=== PATIENT | female | born 1990 | race Caucasian/White ===

== ENCOUNTER 2017-03-24 18:43 | Emergency (ER) | payer BC ==
--- NOTE | 2017-03-24 18:57 | UC ---
Dizzy HPI HPI Summary: 26 year old female presents with fatigue, low energy and hypotension. I will send her to the ER for stat blood work. - History Of Current Complaint Chief Complaint: UCGeneralIllness Stated Complaint: DIZZY,LOW BLOOD PRESSURE THIS AM Time Seen by Provider: 03/24/17 18:52 Hx Last Menstrual Period: 09/09/12 - Allergies/Home Medications Allergies/Adverse Reactions: Allergies Allergy/AdvReac Type Severity Reaction Status Date / Time No Known Allergies Allergy Verified 03/24/17 18:51 Home Medications: Home Medications Flurbiprofen 100 mg PO BID 03/24/17 [History Confirmed 03/24/17] Nabumetone TAB* [Relafen TAB*] 500 mg PO BID 03/24/17 [History Confirmed ] PMH/Surg Hx/FS Hx/Imm Hx - Surgical History Surgical History: None - Family History Known Family History: Negative: Cardiac Disease, Hypertension, Diabetes - Social History Alcohol Use: Occasionally Substance Use Type: None Smoking Status (MU): Light Every Day Tobacco Smoker Type: Cigarettes Amount Used/How Often: 1/2 PPD Household Exposure Type: Cigarettes Review of Systems Constitutional: Fatigue Skin: Negative Eyes: Negative ENT: Negative Respiratory: Negative Cardiovascular: Negative Gastrointestinal: Negative Genitourinary: Negative Motor: Negative Neurovascular: Negative Musculoskeletal: Negative Neurological: Weakness Psychological: Negative All Other Systems Reviewed And Are Negative: Yes Physical Exam Triage Information Reviewed: Yes Eye Exam: Normal ENT Exam: Normal Dental Exam: Normal Neck exam: Normal Neck: Positive: 1 Respiratory Exam: Normal Cardiovascular Exam: Normal Abdominal Exam: Normal Musculoskeletal Exam: Normal Neurological Exam: Normal Psychological Exam: Normal Skin Exam: Normal Dizzy Course/Dx - Differential Dx/Diagnosis Provider Diagnoses: fatigue. malaise. hypotensive Discharge - Discharge Plan Condition: Guarded Disposition: AGAINST MEDICAL ADVICE Patient Education Materials: Dizziness (ED), Fatigue (ED) Referrals: Meredith Flaherty MD [Primary Care Provider] - As Soon As Possible
[2017-03-24 18:59] VITALS: BP 105/64
== END 2017-03-24 19:08 | disposition left against medical advice (07) ==
LOC: UCCORT 18:43
DX: R53.83 Other fatigue (principal); R53.81 Other malaise; I95.9 Hypotension, unspecified; F17.210 Nicotine dependence, cigarettes, uncomplicated
CPT/HCPCS: 99212; G0463

== ENCOUNTER 2017-06-27 11:42 | Emergency (ER) | payer BC ==
[2017-06-27 12:16] VITALS: BP 116/86
--- NOTE | 2017-06-27 12:59 | UC ---
Throat Pain/Nasal Miguel Angel HPI - HPI Summary HPI Summary: THREE WEEKS OF COUGH SINUS CONGESTION .FEVER. URINARY FREQUENCY ONE WEEK. NO PAIN WITH URINATION. - History of Current Complaint Chief Complaint: UCRespiratory Stated Complaint: SINUS COMPLAINT Time Seen by Provider: 06/27/17 11:50 Hx Obtained From: Patient Hx Last Menstrual Period: Spotting end of April 2017 Onset/Duration: Gradual Onset, Lasting Weeks, Still Present Severity: Moderate Cough: None Associated Signs & Symptoms: Positive: Sinus Discomfort, Nasal Discharge, Fever - Epiglottits Risk Factors Epiglottis Risk Factors: Negative - Allergies/Home Medications Allergies/Adverse Reactions: Allergies Allergy/AdvReac Type Severity Reaction Status Date / Time environmental Allergy Congestion Uncoded 06/27/17 12:16 PMH/Surg Hx/FS Hx/Imm Hx Previously Healthy: Yes - Surgical History Surgical History: Yes Surgery Procedure, Year, and Place: Left ovarian cyst 10cm 04/16/17 [facility] - Family History Known Family History: Negative: Cardiac Disease, Hypertension, Diabetes - Social History Occupation: Employed Full-time Lives: With Family Alcohol Use: Occasionally Substance Use Type: None Smoking Status (MU): Light Every Day Tobacco Smoker Type: Cigarettes Amount Used/How Often: 1/2 PPD Household Exposure Type: Cigarettes Review of Systems Constitutional: Fever Skin: Negative ENT: Sinus Congestion, Sinus Pain/Tenderness Respiratory: Cough Cardiovascular: Negative Gastrointestinal: Negative Genitourinary: Dysuria Motor: Negative Neurovascular: Negative Musculoskeletal: Negative Neurological: Negative Psychological: Negative Is Patient Immunocompromised?: No All Other Systems Reviewed And Are Negative: Yes Physical Exam Triage Information Reviewed: Yes Appearance: Well-Appearing, No Pain Distress, Well-Nourished Vital Signs: Initial Vital Signs Temp 99.8 F 06/27/17 12:04 Pulse 100 06/27/17 12:04 Resp 18 06/27/17 12:04 BP 116/86 06/27/17 12:04 Pulse Ox 99 06/27/17 12:04 Vital Signs Reviewed: Yes Eye Exam: Normal ENT: Positive: Hearing grossly normal, Nasal congestion, TM bulging, TM dull Dental Exam: Normal Neck exam: Normal Neck: Positive: Supple, Nontender, No Lymphadenopathy Respiratory Exam: Other - COUGH Respiratory: Positive: Chest non-tender, Lungs clear, Normal breath sounds, No respiratory distress, No accessory muscle use Cardiovascular Exam: Normal Cardiovascular: Positive: RRR, No Murmur, Pulses Normal Abdominal Exam: Normal Musculoskeletal Exam: Normal Neurological Exam: Normal Psychological Exam: Normal Skin Exam: Normal Throat Pain/Nasal Course/Dx - Differential Dx/Diagnosis Differential Diagnosis/HQI/PQRI: Otitis Media, Pharyngitis, Sinusitis, URI Provider Diagnoses: SINUSITIS; DYSURIA Discharge - Discharge Plan Condition: Stable Disposition: HOME Prescriptions: Sulfamethox/Trimethoprim DS* [Bactrim DS 800/160 TAB*] 1 tab PO BID #20 tab Patient Education Materials: Sinusitis (ED), Dysuria (ED) Referrals: [facility] [place] [facility] REFERR[facility] [Outside] No Primary Care Phys,NOPCP [Primary Care Provider] -
== END 2017-06-27 12:56 | disposition home or self-care (01) ==
LOC: UCCORT 11:42
DX: J32.9 Chronic sinusitis, unspecified (principal); R30.0 Dysuria; R35.0 Frequency of micturition; R50.9 Fever, unspecified; Z32.02 Encounter for pregnancy test, result negative; F17.210 Nicotine dependence, cigarettes, uncomplicated
CPT/HCPCS: 81003; 84702; 99212; G0463